=== PATIENT | male | born 1960 | race Caucasian/White ===

== ENCOUNTER 2016-10-13 06:16 | Day surgery (SDC) | payer OTHER ==
[~2016-10-13 06:16] MED LIST: ceFAZolin 2 GM/DEXTROSE 100 ML IV ONE
[2016-10-13] MEDS ORDERED: LIDOCAINE 1% 2 ML INJ ID PRN (06:56)
[2016-10-13] MEDS ORDERED: NS 1,000 ML IV ONE (06:56)
[2016-10-13 07:05] VITALS: PULSE 67
--- NOTE | 2016-10-13 07:05 | PDHPUP ---
History & Physical Update H&P update statement: This history and physical update is based on an assessment of the patient which was completed after admission or registration (within 24 hours), but prior to the surgery/procedure. H&P update: H&P reviewed & patient examined, no change in patient's condition since H&P completed
--- NOTE | 2016-10-13 07:10 | PDGENHP ---
History and Physical History and Physical: CC: CRF, needs HD access HPI: 56 Y M in need of AVF for more permanent HD access. PMH: CRF, HTN, DM PSH: neck cath Meds: see list from 09/10/16 H&P All: NDKA gen: alert, nad heent: ncat pulm: ctab cor: rrr abd: soft, nt ext: wwp US: reveals adequate cephalic vein in upper L arm A/P: CRF LUE AVF. Risks and options discussed.
[2016-10-13 07:13] LABS: % IMMATURE GRANULYOCYTES 0.3 % (0.0-1.1); ABSOLUTE IMMATURE GRANULOCYTES 0.02 10^3/uL (0.00-0.10); ADD DIFF? NO; ADD MORPH? NO; ADD SCAN? NO; ATYPICAL LYMPHOCYTE FLAG 10 (0-99); FRAGMENT RBC FLAG 0 (0-99); HEMATOCRIT 34.5 % (40.0-51.0); HEMOGLOBIN 11.4 g/dL (13.7-17.5); LEFT SHIFT FLG 0 (0-99); LIPEMIA HEMOLYSIS FLAG 80 (0-99); MEAN CELL HEMOGLOBIN 28.3 pg (27.9-34.1); MEAN CELL VOLUME 85.6 fL (81.5-99.8); MEAN PLATELET VOLUME 9.8 fL (8.7-11.7); PLATELET CLUMPS FLAG 10 (0-99); PLATELET COUNT 246 10^3/uL (150-400); RED BLOOD CELL COUNT 4.03 10^6/uL (4.40-6.38); RED CELL DISTRIBUTION WIDTH 13.9 % (11.5-15.2)
[2016-10-13] MEDS ORDERED: THROMBIN (BOVINE) 5,000 UNIT VIAL TP ONE (07:20)
[2016-10-13] MEDS ORDERED: PROTAMINE SULFATE 50 MG/5 ML VIAL IVP ONE (07:20)
[2016-10-13] MEDS ORDERED: THROMBIN (BOVINE) 20,000 UNIT SPRAY TP ONE (07:20)
[2016-10-13] MEDS ORDERED: PAPAVERINE HCL 60 MG/2 ML SDV ONE (07:21)
[2016-10-13] MEDS ORDERED: BUPIVACAINE 0.5% 30 ML SDV ONE (07:21)
--- NOTE | 2016-10-13 07:27 | PDANEPAE ---
ANE Past Medical History - Cardiovascular History Hx Hypertension: Yes Hx Coronary Artery / Peripheral Vascular Disease: Yes Hx CHF / Valvular Disease: No Hx Palpitations: No - Pulmonary History Hx COPD: No Hx Asthma/Reactive Airway Disease: No Hx Recent Upper Respiratory Infection: No Hx Oxygen in Use at Home: No Hx Sleep Apnea: No - Endocrine History Hx Diabetes: Yes - Renal History Hx Renal Disorders: Yes ANE Patient History - Allergies Allergies/Adverse Reactions: No Known Allergies Allergy (Unverified 10/12/16 17:52) - Home Medications Home Medications: Amlodipine Besylate 10/12/16 [Last Taken 10/13/16 05:00] IRON 10/12/16 [Last Taken Unknown] Levothyroxine 10/12/16 [Last Taken 10/13/16 05:00] [place]-3 10/12/16 [Last Taken 10/12/16 08:00] Tums 500MG (*) 10/12/16 [Last Taken 10/12/16 08:00] - NPO status NPO Since - Liquids (Date): 10/12/16 NPO Since - Liquids (Time): 18:00 NPO Since - Solids (Date): 10/12/16 NPO Since - Solids (Time): 18:00 ANE Labs/Vital Signs - Labs Result Diagrams: 10/13/16 06:59 10/13/16 06:58 - Vital Signs Blood Pressure: 192/103 Heart Rate: 67 Respiratory Rate: 20 O2 Sat (%): 97 Height: 169 cm Weight: 72 kg
[2016-10-13] MEDS ORDERED: MIDAZOLAM 2 MG/2 ML VIAL ONE (07:31)
[2016-10-13] MEDS ORDERED: PROPOFOL 200 MG/20 ML VIAL ONE (07:33)
[2016-10-13] MEDS ORDERED: fentaNYL 100 MCG/2 ML INJ ONE (07:33)
[2016-10-13 07:36] LABS: ANION GAP 11 mEq/L (8-16); CALCIUM 8.8 mg/dL (8.5-10.4); CARBON DIOXIDE 23 mEq/l (22-31); CHLORIDE 102 mEq/L (97-110); CREATININE 4.8 mg/dL (0.7-1.3); GLOMERULAR FILTRATION RATE 13; GLUCOSE 143 mg/dL (70-100); POTASSIUM 5.3 mEq/L (3.5-5.2); SODIUM 136 mEq/L (134-144)
[2016-10-13] MEDS ORDERED: METOCLOPRAMIDE 10 MG/2 ML VIAL ONE (07:41)
[2016-10-13] MEDS ORDERED: PHENYLEPHRINE HCL 100 MCG/ML SYR ONE (07:41)
[2016-10-13] MEDS ORDERED: ONDANSETRON 4 MG/2 ML VIAL ONE (07:41)
[2016-10-13] MEDS ORDERED: LIDOCAINE 2% JELLY 5 ML TUBE ONE (07:41)
[2016-10-13] MEDS ORDERED: ceFAZolin 2 GM/DEXTROSE 100 ML IV ONE (07:45)
[2016-10-13] MEDS ORDERED: HEPARIN 10,000 UNIT/10 ML MDV ONE (08:20)
[2016-10-13] MEDS ORDERED: HYDROCODONE/APAP 5/325 TAB PO PRN ×2 (08:59→09:02)
[2016-10-13] MEDS ORDERED: NALOXONE HCL 0.4 MG/ML INJ IVP PRN (09:02)
[2016-10-13] MEDS ORDERED: PROMETHAZINE HCL 25 MG/ML INJ IVP PRN (09:02)
[2016-10-13] MEDS ORDERED: MEPERIDINE 25 MG/ML SYR IVP PRN (09:02)
[2016-10-13] MEDS ORDERED: fentaNYL 100 MCG/2 ML INJ IVP PRN (09:02)
--- NOTE | 2016-10-13 09:02 | POSTOPPROG ---
Post Op Note Date of Operation: 10/13/16 Surgeon: Derian Will Closing Specialist: Jyoti Ernst Anesthesiologist: Shane Ramirez Anesthesia: GET(General Endotracheal) Pre-op Diagnosis: CRF Post-op Diagnosis: same Procedure: L brachiocephalic AVF Findings: good thrill Inf/Abcess present in the surg proc area at time of surgery?: No EBL: Minimal Complications: none
--- NOTE | 2016-10-13 09:05 | POSTANESTH ---
Post Anesthetic Evaluation Cardiovascular Status: Normal, Stable Respiratory Status: Normal, Stable Level of Consciousness/Mental Status: Mildly Sleepy, Arousable Pain Control: Adequate, Prn Tx Ordered Nausea/Vomiting Control: Adequate, Prn Tx Ordered Complications Possibly Related to Anesthesia: None Noted
[2016-10-13 09:16] VITALS: TEMP 97
[2016-10-13 09:50] VITALS: BP 165/90; RESP 13; O2SAT 97
== END 2016-10-13 10:30 | disposition home or self-care (01) ==
LOC: FSGY 06:16
PROVIDERS: ATTEND Surgery
PROC: 03180ZD Bypass Left Brachial Artery to Upper Arm Vein, Open Approach (ICD-10-PCS; principal; 2016-10-13 08:00)
DX: I12.0 Hypertensive chronic kidney disease with stage 5 chronic kidney disease or end stage renal disease (principal); E11.29 Type 2 diabetes mellitus with other diabetic kidney complication; N18.6 End stage renal disease; N17.9 Acute kidney failure, unspecified; Z99.2 Dependence on renal dialysis
CPT/HCPCS: J0690; J1644; J2250; J2370; J2405; J2440; J2704; J2720; J2765; J3010

== ENCOUNTER 2017-04-03 12:13 | Emergency (ER) | payer OTHER ==
[2017-04-03 12:26] VITALS: RESP 18
--- NOTE | 2017-04-03 14:01 | EDPHY ---
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 It started bleeding and then he wrapped it after soaking it in salt water. About a week ago developed a dark scab on the volar tip, 5 mm in diameter. 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 No fever or chills. No recent other trauma. No drainage or pus from the hand. He is complaining of some slightly decreased sensation in both hands only when he is lying down for the last month, no neck or back pain. No weakness or numbness in legs. No headache and no incontinence. REVIEW OF SYSTEMS: Eye: no change in vision ENT: no sore throat Cardiac: no chest pain or syncope Pulmonary: no cough or SOB Abdomen: no vomiting, diarrhea, abdominal pain Musculoskeletal: HPI Skin: HPI Neuro: no headache Constitutional: no fever : no urinary symptoms A comprehensive 10 point review of systems is otherwise negative aside from elements mentioned in the history of present illness. 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 General Appearance: Alert and conversant, cooperative. Eyes: No scleral icterus. ENT, Mouth: Normal mucous membranes. Respiratory: Normal respiratory effort, breath sounds equal, lungs are clear to auscultation. Cardiovascular: Regular rate and rhythm. Left arm fistula present. Gastrointestinal: Abdomen is soft and non tender. Neurological: Alert, face symmetric, normal motor in extremities. Sensation intact to light touch in both hands. Skin: Right ring finger on the volar surface just below the nail has a wound with a 5 mm scab. No drainage or pus and no vesicles. He has 2 linear 1 x 3 mm areas of ecchymoses under the index finger nail. Musculoskeletal: Compartments in the right arm wrist soft. He does have sensation intact to the right hand although it is decreased. He can make a fist. I can flex and extend his ring finger. He does not have pain to palpation except over the distal tip of the right ring finger. The ring finger is not swollen or red or warm to the touch. No lymphangitis. Psychiatric: Not agitated. Emergency Department course/MDM: 1400: Discussed with Dr. James Beltran the patient's neurologist at . He requested echocardiogram, CT arteriogram of the right arm, discharged to follow-up next week with Dr. Will in the office if both negative for acute occlusion or source for embolus. My suspicion for acute infection or tenosynovitis or cellulitis or fasciitis in this patient is low given the exam documented above. 1432: WBC normal, chemistries consistent with dialysis with a normal potassium. 1500: Signed out to RAIN Quezada as per Devin if echo and CTA negative. 1513: LVH otherwise normal, Dr. Beckford. (Dung Ledezma) Constitutional: Initial Vital Signs Temperature (C) 36.6 C 04/03/17 12:23 Heart Rate 78 04/03/17 12:23 Respiratory Rate 18 04/03/17 12:23 Blood Pressure 156/96 H 04/03/17 12:23 O2 Sat (%) 94 04/03/17 12:23 O2 Delivery Mode Room Air Allergies/Adverse Reactions: No Known Allergies Allergy (Verified 04/03/17 12:21) Home Medications: Medication Instructions Recorded Amlodipine Besylate 10/12/16 Levothyroxine 10/12/16 Hydrocodone/APAP 5/325 [[place] 1 - 2 tab PO Q6H PRN #20 tab 10/13/16 5/325 (*)] Insulin Glargine [Lantus 100 0 units SC DAILY 04/03/17 UNITS/ML (*)] Losartan Potassium [Cozaar 50 mg 50 mg PO 04/03/17 (*)] Medical Decision Making - Diagnostics Imaging Results: Imaging Impressions Hand X-Ray 04/03/17 13:58 Impression: 1. Negative for fracture. 2. Extensive arterial calcifications. Hand x-ray interpreted by me shows vascular calcification but no evidence of osteomyelitis. (Dung Ledezma) ED Course/Re-evaluation: 1535: Consulted with Dr. Beltran, nephrology. In agreement with me and Dr. Crocktet , radiologist, that arteriogram will not be beneficial for this patient due to severe digital artery calcifications. Plan to start on baby aspirin and will follow up with Dr. Adonay Will as an outpatient to check on finger tip healing. (Nasim Quezada) - Data Points Laboratory Results: Laboratory Results 04/03/17 14:05 04/03/17 14:05 04/03/17 04/03/17 14:05 14:05 WBC 6.53 10^3/uL 10^3/uL (3.80-9.50) RBC 3.51 10^6/uL L 10^6/uL (4.40-6.38) Hgb 11.0 g/dL L g/dL (13.7-17.5) Hct 31.0 % L % (40.0-51.0) MCV 88.3 fL fL (81.5-99.8) MCH 31.3 pg pg (27.9-34.1) MCHC 35.5 g/dL g/dL (32.4-36.7) RDW 13.7 % % (11.5-15.2) Plt Count 264 10^3/uL 10^3/uL (150-400) MPV 9.4 fL fL (8.7-11.7) Neut % (Auto) 60.4 % % (39.3-74.2) Lymph % (Auto) 26.3 % % (15.0-45.0) [place] % (Auto) 9.3 % % (4.5-13.0) Eos % (Auto) 2.6 % % (0.6-7.6) Baso % (Auto) 1.1 % % (0.3-1.7) Nucleat RBC Rel Count 0.0 % % (0.0-0.2) Absolute Neuts (auto) 3.94 10^3/uL 10^3/uL (1.70-6.50) Absolute Lymphs (auto) 1.72 10^3/uL 10^3/uL (1.00-3.00) Absolute Monos (auto) 0.61 10^3/uL 10^3/uL (0.30-0.80) Absolute Eos (auto) 0.17 10^3/uL 10^3/uL (0.03-0.40) Absolute Basos (auto) 0.07 10^3/uL 10^3/uL (0.02-0.10) Absolute Nucleated RBC 0.00 10^3/uL 10^3/uL (0-0.01) Immature Gran % 0.3 % % (0.0-1.1) Immature Gran # 0.02 10^3/uL 10^3/uL (0.00-0.10) Sodium 138 mEq/L mEq/L (134-144) Potassium 5.0 mEq/L mEq/L (3.5-5.2) Chloride 92 mEq/L L mEq/L (97-110) Carbon Dioxide 24 mEq/l mEq/l (22-31) Anion Gap 22 mEq/L H mEq/L (8-16) BUN 64 mg/dL H mg/dL (7-23) Creatinine 7.5 mg/dL H mg/dL (0.7-1.3) Estimated GFR 8 Glucose 200 mg/dL H mg/dL (70-100) Calcium 8.9 mg/dL mg/dL (8.5-10.4) Departure - Departure Disposition: Home, Routine, Self-Care Clinical Impression: Open wound of ring finger Condition: Good Instructions: Chronic Kidney Disease (ED) Additional Instructions: Take 81mg aspirin daily. Follow up with Dr. Will in 2-3 days. Return to the ED for worsening of condition. [place] 81mg de aspirina todos los hernández. Rowan yong de seguimiento con el Dr. Will en 2-3 hernández. Regrese a la kay de emergencia si empeora headley condicion. Referrals: Vonda Beltran MD [Primary Care Provider] - As per Instructions Derian Will MD [Medical Doctor] - As per Instructions Print Language: Moroccan
[2017-04-03 14:09] VITALS: TEMP 97.9
[2017-04-03 14:12] LABS: PLATELET COUNT 264 10^3/uL (150-400)
--- NOTE | 2017-04-03 15:17 | ECHO ---
[email or web address] [address] [address] Main: [phone] Fax: Transthoracic Echocardiogram Name: FRANK OG MR#: [id number] Study Date: 04/03/2017 Study Time: 02:26 PM Date of : 1960 Age: 56 year(s) Height: 142.2 cm (56 in.) Weight: 74.84 kg (165 lb.) BSA: 1.64 m2 Gender: Male Examination: Echo Indication: Possible finger eachar, eval for clot/ordered by Nephroloy, g Image Quality: Contrast: Requested by: Dung Ledezma BP: / Heart Rate: Rhythm: Indication: Possible finger eachar, eval for clot/ordered by Nephroloy, g Procedure Staff Missile Pad Mechanic: Mey Borja Reading Physician: Pepe Beckford Requesting Provider: Conclusions: 1)Normal LV size and systolic function with a LVEF of 65% and normal wall motions. 2)Mild concentric LVH with mild diastolic dysfunction. 3)Mild left atrial enlargement noted. 4)Trivial MR without MV prolapse. 5)Mild TR with estimated normal PA pressures. 6)Upper normal size ascending thoracic aorta (3.7cm). 7)No pericardial effusion noted. Measurements: Chambers Valvular Assessment AV/MV Valvular Assessment TV/PV Normal Normal Normal Name Value Range Name Value Range Name Value Range Ao Patricia (MM): 3.7 cm (2.2 cm-3.7 AV Vmax: 1.47 m/s (1 m/s-1.7 TR Vmax: 2.17 mm/s ( - ) cm) m/s) TR PGmax: 19 mmHg ( - ) IVSd (2D): 1.1 cm (0.6 cm-1.1 AV maxP mmHg ( - ) syst. PAP: 24 mmHg ( - ) cm) MV E Vmax: 0.71 m/s ( - ) LVDd (2D): 5.6 cm (4.2 cm-5.9 MV A Vmax: 1.16 m/s ( - ) cm) MV E/A: 0.61 ( - ) LVDs (2D): 3.2 cm (2.1 cm-4 cm) LVPWd (2D): 1.0 cm (0.6 cm-1 cm) LVEF (MOD4): 65 % (>=55 %) Continued Measurements: Chambers Valvular Assessment AV/MV Valvular Assessment TV/PV Name Value Name Value Name Value LADs: 4.8 cm MV E/E' Septal: 12.90 CVP (est.): 5 mmHg Patient: FRANK OG Study Date: 04/03/2017 Page 1 of 2 02:26 PM LADs Lon.7 cm MV E/E' Lateral: 11.50 LA Area: 22.2 cm2 Findings: Left Ventricle: Normal size left ventricle. Mild concentric LV hypertrophy. Normal global systolic LV function. EF is 65 %. No regional wall motion abnormality. Grade 1 diastolic dysfunction (abnormal relaxation). Right Ventricle: Normal size right ventricle. Left Atrium: The left atrium is mildly dilated. Right Atrium: The right atrium is normal in size. Mitral Valve: Mild mitral annular calcification. Trivial mitral valve regurgitation. Aortic Valve: The aortic valve is normal in appearance and function. Tricuspid Valve: The tricuspid valve is normal in appearance and function. Mild tricuspid regurgitation is present. The pulmonary artery pressure is normal. Pulmonic Valve: The pulmonic valve is normal in appearance and function. Aorta: The aorta is normal. Pericardium: No pericardial effusion. (No Signature Object) Patient: FRANK OG Study Date: 04/03/2017 Page 2 of 2 02:26 PM [id number]
[2017-04-03] MEDS ORDERED: IOPAMIDOL (ISOVUE 370) 100 ML BTL IV ONE (15:21)
[2017-04-03 16:00] VITALS: BP 175/85; PULSE 67; O2SAT 97
== END 2017-04-03 16:00 | disposition home or self-care (01) ==
DX: S61.204A Unspecified open wound of right ring finger without damage to nail, initial encounter (principal); Z87.891 Personal history of nicotine dependence; Z79.4 Long term (current) use of insulin; W29.0XXA Contact with powered kitchen appliance, initial encounter
CPT/HCPCS: Q9967

== ENCOUNTER 2017-06-03 06:52 | Day surgery (SDC) | payer OTHER ==
[2017-06-03] MEDS ORDERED: LIDOCAINE 1% 300 MG/30 ML SDV ONE (07:52)
[2017-06-03] MEDS ORDERED: IOPAMIDOL (ISOVUE-300) 100 ML BTL ONE ×2 (07:52→11:57)
[2017-06-03] MEDS ORDERED: ALTEPLASE 2 MG VIAL IVP PRN (08:06)
[2017-06-03] MEDS ORDERED: FLUMAZENIL 0.5 MG/5 ML MDV IVP PRN (08:06)
[2017-06-03] MEDS ORDERED: HEPARIN 10,000 UNIT/10 ML MDV (1,000 UNIT/ML) IVP PRN (08:06)
[2017-06-03] MEDS ORDERED: PROTAMINE SULFATE 50 MG/5 ML VIAL IVP PRN (08:06)
[2017-06-03] MEDS ORDERED: MIDAZOLAM 2 MG/2 ML VIAL IVP PRN (08:06)
[2017-06-03] MEDS ORDERED: GLUCAGON HCL 1 MG VIAL IVP PRN (08:06)
[2017-06-03] MEDS ORDERED: fentaNYL 100 MCG/2 ML INJ IVP PRN (08:06)
[2017-06-03] MEDS ORDERED: NALOXONE HCL 0.4 MG/ML INJ IVP PRN (08:06)
[2017-06-03] MEDS ORDERED: MEPERIDINE 25 MG/ML SYR IVP PRN (08:06)
[2017-06-03] MEDS ORDERED: NS 1,000 ML IV SCH (08:15)
[2017-06-03 08:27] VITALS: PULSE 66; RESP 20; TEMP 98
[2017-06-03 08:32] LABS: INR 0.9 (0.83-1.16); PROTIME(PATIENT) 12.4 SEC (12.0-15.0)
--- NOTE | 2017-06-03 08:34 | PDGENHP ---
History & Physical Chief Complaint: COLD LT FINGERS; LUE FISTULA History of Present Illness: CUT HIS RT 4TH DIGIT, WHICH IS NOW BLACK; COLD LT FINGERS. Pertinent Past, Social, Family History: LUE FISTULA IS 9 MO OLD. ESRD Relevant Physical Exam: LT 4TH DIGIT SORE STARTED 1 MONTH AGO SPONTANEOUSLY. RT 4TH DIGIT TIP IS BLACK, STARTED POST TRAUMA. BOUNDING RT RADIAL PULSE. NON- PALPABLE LT RADIAL PULSE. Cardiorespiratory Assessment: RRR. CTA.
--- NOTE | 2017-06-03 08:35 | PDPROPOC ---
Sedation Plan of Care Sedation Plan of Care: vital signs stable, mental status noted, patient educated of risks, benefits, alternatives, patient can tolerate sedation ASA Classification: ASA 3 Planned drugs: fentanyl, midazolam Mallampati Score: Class 1 Mallampati Reference Image: Patient passed 3-3-2 rule?: Yes
[2017-06-03 11:02] VITALS: O2SAT 100
[2017-06-03] MEDS ORDERED: OXYCODONE/APAP 5/325 TAB PO PRN (11:50)
[2017-06-03] MEDS ORDERED: ONDANSETRON 4 MG/2 ML VIAL IVP PRN (11:50)
--- NOTE | 2017-06-03 11:52 | PDRADPN ---
Radiology Procedure Note Date of Procedure: 06/03/17 Radiologist: Kate Mercer Anesthesia: IV Sedation Pre-op Diagnosis: steal syndrome Post-op Diagnosis: same Indication: non-healing wounds bilateral 4th digits Procedure: bilateral UE arteriograms Finding(s): see report Inf/Abcess present in the surg proc area at time of surgery?: No Complications: None
[2017-06-03 11:58] VITALS: BP 143/73
[2017-06-03] MEDS ORDERED: fentaNYL 100 MCG/2 ML INJ IVP ONE (12:30)
[2017-06-03] MEDS ORDERED: NITROGLYCERIN/D5W 50 MG/250 ML BOTTLE IV ONE (15:49)
== END 2017-06-03 16:45 | disposition home or self-care (01) ==
LOC: FIMAGING 06:52
PROVIDERS: ATTEND Radiology Diagnostic Radiology
PROC: B34KZZZ Ultrasonography of Bilateral Upper Extremity Arteries (ICD-10-PCS; principal; 2017-06-03)
PROC: B31K1ZZ Fluoroscopy of Bilateral Upper Extremity Arteries using Low Osmolar Contrast (ICD-10-PCS; principal; 2017-06-03)
DX: G45.8 Other transient cerebral ischemic attacks and related syndromes (principal); I77.1 Stricture of artery; L98.499 Non-pressure chronic ulcer of skin of other sites with unspecified severity; N18.6 End stage renal disease; Z99.2 Dependence on renal dialysis
CPT/HCPCS: 36215; 36217; 36901; 75716; 99152; 99153; C1769; J1644; J2250; J2310; J3010; Q9967

== ENCOUNTER 2017-06-15 12:16 | Day surgery (SDC) | payer OTHER ==
[2017-06-15] MEDS ORDERED: LR 1,000 ML IV ONE (12:37)
[2017-06-15] MEDS ORDERED: ceFAZolin 2 GM/SWFI 2 GM/20 ML SYR IVP ONE (12:37)
[2017-06-15 13:05] LABS: PLATELET COUNT 279 10^3/uL (150-400)
[2017-06-15] MEDS ORDERED: NS 1,000 ML IV SCH (13:15)
[2017-06-15] MEDS ORDERED: THROMBIN (BOVINE) 5,000 UNIT VIAL TP ONE (13:50)
[2017-06-15] MEDS ORDERED: THROMBIN (BOVINE) 20,000 UNIT SPRAY TP ONE (13:50)
[2017-06-15] MEDS ORDERED: BUPIVACAINE 0.5% 30 ML SDV ONE (13:51)
[2017-06-15] MEDS ORDERED: PAPAVERINE HCL 60 MG/2 ML SDV ONE (13:51)
[2017-06-15] MEDS ORDERED: PROTAMINE SULFATE 50 MG/5 ML VIAL IVP ONE (13:51)
[2017-06-15] MEDS ORDERED: MIDAZOLAM 2 MG/2 ML VIAL IVP ONE (15:54)
--- NOTE | 2017-06-15 16:00 | PDANEPAE ---
ANE History of Present Illness 57 year old male for AV fistula. ANE Past Medical History - Cardiovascular History Hx Hypertension: Yes Hx Arrhythmias: No Hx Chest Pain: No Hx Coronary Artery / Peripheral Vascular Disease: No Hx CHF / Valvular Disease: No Hx Palpitations: No - Pulmonary History Hx COPD: No Hx Asthma/Reactive Airway Disease: No Hx Recent Upper Respiratory Infection: No Hx Oxygen in Use at Home: No Hx Sleep Apnea: No Sleep Apnea Screening Result - Last Documented: Positive - Neurologic History Hx Cerebrovascular Accident: No Hx Seizures: No Hx Dementia: No - Endocrine History Hx Diabetes: Yes Endocrine History Comment: DM II - Renal History Hx Renal Disorders: Yes Renal History Comment: ESRD - Liver History Hx Hepatic Disorders: No - Neurological & Psychiatric Hx Hx Neurological and Psychiatric Disorders: No - Cancer History Hx Cancer: No - Congenital Disorder History Hx Congenital Disorders: No - GI History Hx Gastrointestinal Disorders: No Gastrointestinal History Comment: Abscess found-not concerning, return for follow up every year - Chronic Pain History Chronic Pain: No - Surgical History Prior Surgeries: Gallbladder removal. Fistula placement ANE Review of Systems Review of systems is: negative Review of Systems: - Exercise capacity METS (RN): 4 METS ANE Patient History - Allergies Allergies/Adverse Reactions: No Known Allergies Allergy (Verified 06/02/17 13:55) - Home Medications Home Medications: Amlodipine Besylate 10 mg PO DAILY 10/12/16 [Last Taken 06/15/17] Levothyroxine 125 mcg PO DAILY 10/12/16 [Last Taken 06/14/17] Insulin Glargine [Lantus 100 UNITS/ML (*)] 6 units SC DAILY 04/03/17 [Last Taken 06/15/17 4 units] Aspirin 81mg (*) 81 mg PO DAILY 06/03/17 [Last Taken 06/02/17] Feosol PO DAILY 06/03/17 [Last Taken 06/14/17] Losartan Potassium 25 mg PO DAILY 06/03/17 [Last Taken 06/15/17] Multivitamin (*) 1 tab PO DAILY 06/03/17 [Last Taken 06/14/17] Omeprazole 1 tab PO DAILY 06/03/17 [Last Taken 06/02/17] Sevelamer HCl [Renagel 800mg (*)] 800 mg PO DAILY 06/03/17 [Last Taken 06/14/17] Sodium Bicarbonate 2 tab PO DAILY 06/03/17 [Last Taken 06/14/17] novoLOG 2 unit SC PRN 06/03/17 [Last Taken Unknown] Keflex 06/14/17 [Last Taken 06/14/17] - NPO status NPO Since - Liquids (Date): 06/15/17 NPO Since - Liquids (Time): 10:00 NPO Since - Solids (Date): 06/14/17 NPO Since - Solids (Time): 21:00 - Smoking Hx Smoking Status: Former smoker - Family Anes Hx Family Hx Anesthesia Complications: None ANE Labs/Vital Signs - Labs Result Diagrams: 06/15/17 12:55 06/15/17 12:55 - Vital Signs Blood Pressure: 173/84 Heart Rate: 71 Respiratory Rate: 16 O2 Sat (%): 99 Height: 169 cm Weight: 75 kg ANE Physical Exam - Airway Neck exam: FROM Mallampati Score: Class 2 Mouth exam: poor dentition - Pulmonary Pulmonary: no respiratory distress - Cardiovascular Cardiovascular: regular rate and rhythym - ASA Status ASA Status: III ANE Anesthesia Plan Anesthesia Plan: GA w LMA
[2017-06-15] MEDS ORDERED: PROPOFOL/EMULSION 500 MG/50 ML BOTTLE IV ONE (16:15)
[2017-06-15] MEDS ORDERED: fentaNYL 100 MCG/2 ML INJ ONE ×2 (16:19→18:24)
[2017-06-15] MEDS ORDERED: METOCLOPRAMIDE 10 MG/2 ML VIAL IVP PRN (17:10)
[2017-06-15] MEDS ORDERED: ALBUTEROL 3 ML DEYVIAL IH PRN (17:10)
[2017-06-15] MEDS ORDERED: HYDROCODONE/APAP 5/325 TAB PO PRN (17:10)
[2017-06-15] MEDS ORDERED: PHENYLEPHRINE HCL 100 MCG/ML SYR IVP PRN (17:10)
[2017-06-15] MEDS ORDERED: HYDROmorphONE/DILAUDID 2 MG/ML INJ IVP PRN (17:10)
[2017-06-15] MEDS ORDERED: fentaNYL 100 MCG/2 ML INJ IVP PRN (17:10)
[2017-06-15] MEDS ORDERED: PROMETHAZINE HCL 25 MG/ML INJ IVP PRN (17:10)
[2017-06-15] MEDS ORDERED: LABETALOL HCL 5 MG/ML 20 ML MDV IVP PRN (17:10)
[2017-06-15] MEDS ORDERED: NALOXONE HCL 0.4 MG/ML INJ IVP PRN (17:10)
--- NOTE | 2017-06-15 17:52 | POSTOPPROG ---
Post Op Note Date of Operation: 06/15/17 Surgeon: Derian Will Note Keeper: Jyoti Ernst Anesthesiologist: Beth Pires Anesthesia: GET(General Endotracheal) Pre-op Diagnosis: HD with LUE AVF and steal syndrome, necrotic distal finger tip Post-op Diagnosis: same Procedure: LUE AVF revision with banding and ligation of collateral vessel Findings: palpable radial pulse post procedure Inf/Abcess present in the surg proc area at time of surgery?: No EBL: Minimal Complications: none
[2017-06-15 18:48] VITALS: TEMP 97.9
[2017-06-15 18:51] VITALS: BP 138/70
[2017-06-15 19:00] VITALS: PULSE 65; RESP 14; O2SAT 95
--- NOTE | 2017-06-20 06:21 | GOP ---
[f rep st] OPERATIVE REPORT DATE OF OPERATION: 06/15/2017 SURGEON: Derian Will MD STEREO EQUIPMENT SALESPERSON: Jyoti Ernst, PAC. ANESTHESIOLOGIST: Kaushal Madison MD. PREOPERATIVE DIAGNOSIS: Ischemic left 4th finger with possible steal syndrome and chronic renal fail ure. POSTOPERATIVE DIAGNOSIS: Ischemic left 4th finger with possible steal syndrome and chronic renal moe lure. PROCEDURE PERFORMED: 1. Ultrasound vein mapping left arm. 2. Left arteriovenous fistula proximal banding and collateral ligation. FINDINGS: Patient was found to have a decreased radial pulse preoperatively but that improved after proximal banding of his fistula and ligation of a large collateral. DESCRIPTION OF PROCEDURE: The patient was taken to the operating room where he received a satisfacto ry general endotracheal anesthesia, and he was placed in supine position with the left arm on an outs tretched on arm board. Using the ultrasound vein mapping was done, and there appeared to be an extre shaw large fistula stealing blood away from the AV fistula and is running retrograde back down to the forearm. A short incision was made over this collateral vein. It was dissected free and doubly lig ated with 2-0 silk ties. A transverse incision was then made over the proximal portion of the AV fis nancy and it was dissected free and controlled with a vessel loop. The proximal end was imbricated wi th a running 4-0 Prolene suture and then a 2nd row of 4-0 Prolene mattress sutures to decrease the in flow of the fistula down to less than 50% fistula flow remained and patent but with this proximal ban ding, the radial pulse appeared to be much stronger and thus fingers of his hand remained pink. The wound was infiltrated with 0.5% Marcaine and closed in layers using 3-0 Vicryl for the subcutaneous t issue and 4-0 Monocryl subcuticular stitch for the skin. All layers infiltrated with 0.5% Marcaine. Tolerated procedure well. Taken to recovery room in good condition. COMPLICATIONS: Complications. /[id number]/MODL
== END 2017-06-15 20:05 | disposition home or self-care (01) ==
LOC: FSGY 12:16
PROVIDERS: ATTEND Surgery
PROC: 05LY0ZZ Occlusion of Upper Vein, Open Approach (ICD-10-PCS; principal; 2017-06-15 15:00)
DX: T82.898A Other specified complication of vascular prosthetic devices, implants and grafts, initial encounter (principal); N18.6 End stage renal disease; E11.22 Type 2 diabetes mellitus with diabetic chronic kidney disease; Y82.9 Unspecified medical devices associated with adverse incidents; I12.0 Hypertensive chronic kidney disease with stage 5 chronic kidney disease or end stage renal disease; E03.9 Hypothyroidism, unspecified; I73.9 Peripheral vascular disease, unspecified; S61.20 Unspecified open wound of other finger without damage to nail; Z79.4 Long term (current) use of insulin; Z87.891 Personal history of nicotine dependence; Z99.2 Dependence on renal dialysis
CPT/HCPCS: J0690; J1644; J2250; J2440; J2704; J2720; J3010

== ENCOUNTER → 2017-09-09 | Outpatient (CLI) | payer OTHER | LOC: FIMAGING 15:19 | PROVIDERS: ATTEND Internal Medicine Cardiovascular Disease | DX: M79.89 Other specified soft tissue disorders (principal); I99.9 Unspecified disorder of circulatory system ==

== ENCOUNTER 2017-09-16 08:53 | Observation (INO) | payer OTHER ==
[2017-09-16] MEDS ORDERED: ceFAZolin 2 GM/DEXTROSE 100 ML IV ONE (09:06)
[2017-09-16] MEDS ORDERED: NS 1,000 ML IV ONE (09:07)
[2017-09-16] MEDS ORDERED: THROMBIN (BOVINE) 20,000 UNIT SPRAY TP ONE (09:14)
[2017-09-16] MEDS ORDERED: BUPIVACAINE 0.25% 30 ML SDV ONE (09:14)
[2017-09-16] MEDS ORDERED: PROTAMINE SULFATE 50 MG/5 ML VIAL IVP ONE (09:15)
[2017-09-16] MEDS ORDERED: PAPAVERINE HCL 60 MG/2 ML SDV ONE (09:15)
[2017-09-16] MEDS ORDERED: THROMBIN (BOVINE) 5,000 UNIT VIAL TP ONE (09:15)
[2017-09-16 09:55] LABS: PLATELET COUNT 322 10^3/uL (150-400)
--- NOTE | 2017-09-16 10:16 | PDANEPAE ---
ANE History of Present Illness 57 year old male with ESRD on HD presents for left upper extrmity bypass due to PVD. (Booked as AV fistula revision, but this is NOT an AV fistula case.) Patient luxembourgish speaking as primary language. PMHx includes HTN, IDDM II, hypothyroidism, former smoker and FLOYD risk factors. ANE Past Medical History - Cardiovascular History Hx Hypertension: Yes Hx Arrhythmias: No Hx Chest Pain: No Hx Coronary Artery / Peripheral Vascular Disease: No Hx CHF / Valvular Disease: No Hx Palpitations: No - Pulmonary History Hx COPD: No Hx Asthma/Reactive Airway Disease: No Hx Recent Upper Respiratory Infection: No Hx Oxygen in Use at Home: No Hx Sleep Apnea: No Sleep Apnea Screening Result - Last Documented: Positive Pulmonary History Comment: floyd triggers - Neurologic History Hx Cerebrovascular Accident: No Hx Seizures: No Hx Dementia: No - Endocrine History Hx Diabetes: Yes Endocrine History Comment: DM II. hypothyroidism - Renal History Hx Renal Disorders: Yes Renal History Comment: ESRD - HD last on 09-15-17 with normal dialysis run - Liver History Hx Hepatic Disorders: No - Neurological & Psychiatric Hx Hx Neurological and Psychiatric Disorders: No - Cancer History Hx Cancer: No - Congenital Disorder History Hx Congenital Disorders: No - GI History Hx Gastrointestinal Disorders: Yes Gastrointestinal History Comment: Abscess found-not concerning, return for follow up every year. reflux - Other Health History Other Health History: wears glasses. bilateral hearing aides. 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 10/13/16 Left AVF placed with Will. Gallbladder removal. Fistula placement ANE Review of Systems Review of Systems: - Exercise capacity Exercise capacity: >=4 METS METS (RN): 4 METS ANE Patient History - Allergies Allergies/Adverse Reactions: No Known Allergies Allergy (Verified 09/15/17 14:54) - Home Medications Home medications: home medication list seen and reviewed Home Medications: Amlodipine Besylate 10/12/16 [Last Taken 09/15/17] Levothyroxine 10/12/16 [Last Taken 09/15/17] Insulin Glargine [Lantus 100 UNITS/ML (*)] 04/03/17 [Last Taken 09/15/17] Aspirin 81mg (*) 06/03/17 [Last Taken 09/15/17] Feosol 06/03/17 [Last Taken 09/15/17] Losartan Potassium 06/03/17 [Last Taken 09/15/17] Multivitamin (*) 06/03/17 [Last Taken 09/15/17] Omeprazole 06/03/17 [Last Taken 09/15/17] Sevelamer HCl [Renagel 800mg (*)] 06/03/17 [Last Taken 09/15/17] Sodium Bicarbonate 06/03/17 [Last Taken 09/15/17] novoLOG 06/03/17 [Last Taken 09/15/17] Keflex 06/14/17 [Last Taken 06/14/17] - NPO status NPO Status: no food or drink >8 hours NPO Since - Liquids (Date): 09/15/17 NPO Since - Liquids (Time): 12:00 NPO Since - Solids (Date): 09/15/17 NPO Since - Solids (Time): 18:00 - Anes Hx Anes Hx: no prior problems - Smoking Hx Smoking Status: Former smoker Marijuana use: No - Alcohol Use Alcohol Use: None - Family Anes Hx Family Anes Hx: neg - N/A Family Hx Anesthesia Complications: None ANE Labs/Vital Signs - Labs Result Diagrams: 09/16/17 09:30 09/16/17 09:30 - Vital Signs Vital Signs: reviewed preoperatively; see RN documention for details Blood Pressure: 166/73 Heart Rate: 67 Respiratory Rate: 16 O2 Sat (%): 98 Height: 169 cm Weight: 72 kg ANE Physical Exam - Airway Neck exam: FROM Mallampati Score: Class 2 Mouth exam: normal dental/mouth exam Mouth image: 1 - Missing teeth 2 - Mising teeth - Pulmonary Pulmonary: no respiratory distress - Cardiovascular Cardiovascular: regular rate and rhythym - ASA Status ASA Status: IV ANE Anesthesia Plan Anesthesia Plan: general endotracheal anesthesia Total IV Anesthesia: No
[2017-09-16] MEDS ORDERED: PROPOFOL 200 MG/20 ML VIAL ONE (11:23)
[2017-09-16] MEDS ORDERED: fentaNYL 100 MCG/2 ML INJ ONE ×2 (11:23→15:07)
[2017-09-16] MEDS ORDERED: ONDANSETRON 4 MG/2 ML VIAL ONE (11:47)
[2017-09-16] MEDS ORDERED: DEXAMETHASONE 4 MG/ML VIAL ONE (11:47)
[2017-09-16] MEDS ORDERED: HYDROmorphONE/DILAUDID 1 MG/ML INJ IVP PRN ×2 (12:23→14:05)
[2017-09-16] MEDS ORDERED: ONDANSETRON 4 MG/2 ML VIAL IVP PRN (12:23)
[2017-09-16] MEDS ORDERED: NALOXONE HCL 0.4 MG/ML INJ IVP PRN (12:23)
[2017-09-16] MEDS ORDERED: NS 500 ML IV PRN (12:23)
[2017-09-16] MEDS ORDERED: PHENYLEPHRINE HCL 100 MCG/ML SYR IVP PRN (12:23)
[2017-09-16] MEDS ORDERED: NEOSTIGMINE METHYLSULFATE 10 MG/10 ML MDV ONE (13:47)
[2017-09-16] MEDS ORDERED: GLYCOPYRROLATE 0.2 MG/1 ML VIAL ONE (13:47)
--- NOTE | 2017-09-16 14:04 | POSTOPPROG ---
Post Op Note Date of Operation: 09/16/17 Surgeon: Derian Will Hair Cutter: Cody Anesthesiologist: Jose Anesthesia: GET(General Endotracheal) Pre-op Diagnosis: Steal syndrome, ESRD Post-op Diagnosis: ESRD Indication: Necrotic left fourth finger Procedure: Left AVF revision and DRIL procedure using saphenous vein graft Findings: Viabal left saphenous vein, normal radial pulse Inf/Abcess present in the surg proc area at time of surgery?: No Depth: Deep Incisional (Fascial) EBL: Minimal
[2017-09-16] MEDS ORDERED: OXYCODONE/APAP 5/325 TAB PO PRN (14:05)
[2017-09-16] MEDS ORDERED: ONDANSETRON DISINTEGRATING 4 MG TAB PO PRN (14:06)
[2017-09-16] MEDS: fentaNYL 100 MCG/2 ML INJ IVP PRN ×2 (15:08→15:15)
[2017-09-16] MEDS ORDERED: SODIUM HYPOCHLORITE (DAKINS 1/4 STR) 473 ML BTL TP PRN (17:20)
--- NOTE | 2017-09-16 19:38 | POSTANESTH ---
Post Anesthetic Evaluation Cardiovascular Status: Similar to Pre-Op Cond Respiratory Status: Similar to Pre-op Cond. Level of Consciousness/Mental Status: Can Participate in Eval, Alert and Oriented Pain Control: Adequate, Prn Tx Ordered Nausea/Vomiting Control: Adequate, Prn Tx Ordered Complications Possibly Related to Anesthesia: None Noted
[2017-09-17] MEDS ORDERED: LEVOTHYROXINE 125 MCG TAB PO SCH (07:15)
[2017-09-17] MEDS ORDERED: SEVELAMER HCL 800 MG TAB PO SCH (08:00)
[2017-09-17 08:16] VITALS: BP 151/71
[2017-09-17] MEDS ORDERED: NEPHROVITE FOLIC ACID/VIT B&C 1 TAB PO SCH (09:00)
[2017-09-17] MEDS ORDERED: LOSARTAN POTASSIUM 25 MG TAB PO SCH (09:00)
[2017-09-17] MEDS ORDERED: ASPIRIN 81 MG CHEWABLE TAB PO SCH (09:00)
[2017-09-17] MEDS ORDERED: SODIUM BICARBONATE 650 MG TAB PO SCH (09:00)
[2017-09-17] MEDS ORDERED: PANTOPRAZOLE SODIUM 40 MG TAB PO SCH (09:00)
[2017-09-17] MEDS ORDERED: INSULIN GLARGINE 100 UNITS/ML SYRINGE SC SCH (09:00)
[2017-09-17] MEDS ORDERED: amLODIPine BESYLATE 5 MG TAB PO SCH (09:00)
--- NOTE | 2017-09-17 09:56 | SOAPPROG ---
[facility] Progress Note Assessment/Plan: Assessment: 57 y/o M with ESRD s/p LUE AVF revision and DRIL procedure for STEAL syndrome POD #1 S: Denies incisional pain, but still has some pain in his left fourth finger. O: Alert Afebrile RRR No increased WOB LUE: palpable thrill in AVF. Incisions are cdi. +Radial pulse LLE: Dressing with some shadowing. Mildly tender to palpation Plan: Dispo home today. Ok to have dialysis today at his scheduled time. Follow up in our office on Wednesday next week. 09/17/17 09:53 Objective: Vital Signs Temp Pulse Resp BP Pulse Ox 36.8 C 72 16 151/71 H 99 09/17/17 08:00 09/17/17 08:00 09/17/17 08:00 09/17/17 08:00 09/17/17 08:00 Laboratory Results 09/16/17 09:30 09/16/17 09:30 09/16/17 09/17/17 09/18/17 05:59 05:59 05:59 Intake Total 600 Balance 600 ICD10 Worksheet Patient Problems: Problems Problem Status Onset ESRD (end stage renal disease) on dialysis Acute
--- NOTE | 2017-09-18 19:50 | GOP ---
[f rep st] OPERATIVE REPORT DATE OF OPERATION: 09/16/2017 SURGEON: Derian Will MD PROJECT CONTROL MANAGER: Dari Ross, nurse practitioner. PREOPERATIVE DIAGNOSIS: Possible steal syndrome of the left hand secondary at AV fistula with necrotic 4th ring finger tip. POSTOPERATIVE DIAGNOSIS: Possible steal syndrome of the left hand secondary at AV fistula with necrotic 4th ring finger tip. PROCEDURE PERFORMED: Distal revascularization and interval ligation of the AV fistula with saphenous vein graft. FINDINGS: The patient was found to have an improved radial pulse after completion of a saphenous vein bypass to the forearm. DESCRIPTION OF PROCEDURE: Patient was taken to the operating room where he received satisfactory general endotracheal anesthesia, placed in the supine position, prepped and draped in usual sterile fashion with the left arm outstretched on an arm board. Using ultrasound guidance, the saphenous vein in the left thigh was identified and evaluated and appeared to be adequate for bypass graft. Incision was made in the upper arm medially. Dissection extended down to the brachial artery, which was dissected free and controlled with vessel loops. 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 A second incision was made in the proximal forearm just below the fistula where the brachial artery was dissected free below the fistula and controlled with vessel loops. After adequate exposure, attention was turned to the left thigh, which had been prepped and draped in usual sterile fashion. A longitudinal incision was made in the greater saphenous vein was dissected free from the fossa ovalis down to the distal thigh. Multiple branches were hemoclipped and divided. The vein was then ligated proximally and distally with 2-0 silk ties. The vein was harvested. It was distended with heparin and saline and appeared to be quite adequate. The patient was then systemically heparinized. The proximal end-to-side anastomosis was made to the brachial artery from 12 cm above the AV fistula anastomosis. This was done with a running 6-0 Prolene suture with good inflow into the bypass graft. This was then tunneled subcutaneously to the distal incision. The brachial artery was ligated proximally with a running 4-0 Prolene suture closing off his stump of the brachial artery just below the AV fistula. Anastomosis was then made to the distal brachial artery in an end manner using a running 6-0 Prolene suture. All vessels were flushed prior to completion of the anastomosis and flow was then reestablished through the AV fistula and then back down the hand. Palpable pedal pulse was established. Wounds were irrigated. Hemostasis was assured. Heparin was reversed with protamine. The wounds were sprayed with some topical thrombin and closed in layers using 3-0 Vicryl for the subcutaneous tissue and superficial fascia and skin ara for the skin. The thigh was closed in a similar manner with a running 2-0 Vicryl for the subcutaneous tissue and superficial fascia and skin ara for the skin. All wounds were infiltrated with Marcaine. He tolerated procedure quite well and was taken to the recovery room in good condition. COMPLICATIONS: None. Copy requested to: ALY JENKINS /[id number]/MODL MTDD
== END 2017-09-17 10:43 | disposition home or self-care (01) ==
LOC: FSGY 08:53 → F3E 14:04
PROVIDERS: ADMIT Surgery; ATTEND Surgery
PROC: 031809F Bypass Left Brachial Artery to Lower Arm Vein with Autologous Venous Tissue, Open Approach (ICD-10-PCS; principal; 2017-09-16 10:30)
PROC: 06BN0ZZ Excision of Left Femoral Vein, Open Approach (ICD-10-PCS; principal; 2017-09-16 10:30)
DX: T82.898A Other specified complication of vascular prosthetic devices, implants and grafts, initial encounter (principal); N18.6 End stage renal disease; E11.22 Type 2 diabetes mellitus with diabetic chronic kidney disease; E11.319 Type 2 diabetes mellitus with unspecified diabetic retinopathy without macular edema; I12.0 Hypertensive chronic kidney disease with stage 5 chronic kidney disease or end stage renal disease; E03.9 Hypothyroidism, unspecified; Z87.891 Personal history of nicotine dependence; Z99.2 Dependence on renal dialysis
CPT/HCPCS: 36838; G0378; J0690; J1100; J1644; J1815; J2405; J2440; J2704; J2720; J3010